=== PATIENT | male | born 1985 | race Two or more races ===

== ENCOUNTER 2019-11-19 15:36 | Emergency (ER) | payer SELFPAY ==
[~2019-11-19] VITALS: Ht 165.1 cm; Wt 81.6 kg
[2019-11-19 16:00] VITALS: BP 155/96
[2019-11-19] MEDS ORDERED: TETRACAINE 0.5% OPHTH SOLUTION 4ML BOTTLE. OD ONE (16:15)
[2019-11-19] MEDS ORDERED: FLUORESCEIN OPHTH TEST STRIP. OD ONE (16:15)
[2019-11-19] MEDS ORDERED: ERYTHROMYCIN 0.5% OPHTH OINTMENT 1GM TUBE. OD ONE (16:45)
[2019-11-19] MEDS ORDERED: ERYT1OIN6 OD (16:55)
--- NOTE | 2019-11-19 16:56 | PHYS DOC ---
General Adult EDM: Chief Complaint: FOREIGN BODY/EYES HPI: HPI: Patient is a 34 year old male who presents to the emergency department with complaints of a foreign body sensation in his right eye. Patient states yesterday he was sharpening some metal when he felt something go into his eye. He denies any vision changes, pain, crusting, or tearing from the affected eye. He currently denies any pain. Patient reports that his last tetanus shot was 8 years ago (LENNY DELGADO APRN) Review of Systems: Review of Systems: Constitutional: Denies fever or chills. [] Eyes: Denies change in visual acuity; see HPI. [] Integument: Denies rash. [] Neurologic: Denies headache Complete ROS is negative unless otherwise stated in the HPI. (LENNY DELGADO APRN) Heart Score: Risk Factors: Risk Factors: DM, Current or recent (<one month) smoker, HTN, HLP, family history of CAD, obesity. Risk Scores: Score 0 - 3: 2.5% MACE over next 6 weeks - Discharge Home Score 4 - 6: 20.3% MACE over next 6 weeks - Admit for Clinical Observation Score 7 - 10: 72.7% MACE over next 6 weeks - Early Invasive Strategies (LENNY DELGADO APRN) Current Medications: Current Medications Medications (Trade) Dose Ordered Sig/Reagan Start Time Stop Time Status Last Admin Dose Admin Erythromycin (Romycin) 0.5 inch 1X ONCE 11/19/19 16:45 11/19/19 16:46 Fluorescein Sodium (Ful-Ellen) 1 strip 1X ONCE 11/19/19 16:15 11/19/19 16:16 DC 11/19/19 16:14 1 STRIP Tetracaine HCl (Tetracaine) 1 drop 1X ONCE 11/19/19 16:15 11/19/19 16:16 DC 11/19/19 16:14 1 DROP (LENNY DELGADO APRN) Allergies: Allergies: Allergies Coded Allergies Type Severity Reaction Last Updated Verified No Known Drug Allergies 11/19/19 No (LENNY DELGADO APRN) Physical Exam: PE: Constitutional: Well developed, well nourished, no acute distress, non-toxic appearance. [] HENT: Normocephalic, atraumatic, bilateral external ears normal, nose normal. [] Eyes: PERRLA, EOMI, left eye no discharge, left eye conjunctive normal; right eye conjunctive a injected with watery discharge, visible foreign body noted to the lateral iris at 3 o'clock position with small rust ring surrounding the foreign body. Neck: Normal range of motion, no stridor. [] Cardiovascular:Heart rate regular rhythm Lungs & Thorax: Respirations even and unlabored, no retractions, no respiratory distress Skin: Warm, dry, no erythema, no rash. [] Extremities: No cyanosis, ROM intact, no edema. [] Neurologic: Alert and oriented X 3, no focal deficits noted. [] Psychologic: Affect normal, judgement normal, mood normal. [] (LENNY DELGADO APRN) EKG: EKG: [] (LENNY DELGADO APRN) Radiology/Procedures: Radiology/Procedures: Using tetracaine and fluroscein the patient's eye was examined under Wood's lamp and an area of uptake with a visible foreign body was noted at 3:00 over the lateral iris. Using the [employer] foreign body spud, 2 small valadez colored metallic foreign bodies were removed by myself. Patient's ocular symptoms have stabilized while they have been evaluated in the department and are appropriate for outpatient work up. No evidence of ruptured globe, retinal detachment, acute angle closure glaucoma, or deep space infection. Plan for 24 hour ophthalmologic follow up. [] (LENNY DELGADO APRN) Course & Med Decision Making: Course & Med Decision Making Pertinent Labs and Imaging studies reviewed. (See chart for details) [] (LENNY DELGADO APRN) Course & Med Decision Making I have reviewed the PA/SUPERINTENDENT CUSTODIAN JANITOR's note and Plan of Care. I was available for consul tation as needed during the patient's visit in the emergency department. I agree with the clinical impression, plans and disposition. (SAMEER GUZMAN MD) Niles Disclaimer: Niles Disclaimer: This electronic medical record was generated, in whole or in part, using a voice recognition dictation system. (LENNY DELGADO APRN) Departure Departure Impression: Primary Impression: Foreign body in eyeball, right Qualified Codes: S05.51XA - Penetrating wound with foreign body of right ey eball, initial encounter Additional Impression: Need for Tdap vaccination Disposition: HOME, SELF-CARE Condition: STABLE Referrals: NO PCP (PCP) Brayden OSMAN MD Patient Instructions: Eye - Foreign Body, [id number], VIS, Tetanus, Diphtheria (Td); Tetanus, Diphtheria, Pertussis (Tdap) - [facility] Additional Instructions: Fill the prescriptions and use them as directed. Follow-up with Dr. Osman or your eye doctor tomorrow for repeat exam. Return to the ER if symptoms worsen. Scripts Erythromycin Base (Erythromycin) 1 Gm Oint...g. 0.5 INCH OD QID for 5 Days, #1 TUBE 0 Refills Prov: LENNY DELGADO APRN 11/19/19 Justicifation of Admission Dx: Justifications for Admission: Justification of Admission Dx: N/A (LENNY DELGADO APRN) LENNY DELGADO APRN Nov 19, 2019 16:56 SAMEER GUZMAN MD Nov 19, 2019 16:58
[2019-11-19] MEDS ORDERED: DIPH,PERTUSS(ACELL),TET VAC/PF 0.5 ML SYRINGE. VAX IM ONE (17:15)
== END 2019-11-19 17:25 | disposition home or self-care (01) ==
LOC: ER 15:36
DX: T15.81XA Foreign body in other and multiple parts of external eye, right eye, initial encounter (principal); X58.XXXA Exposure to other specified factors, initial encounter; Y93.89 Activity, other specified; Y92.89 Other specified places as the place of occurrence of the external cause; Y99.8 Other external cause status
CPT/HCPCS: 65205; 65222; 90471; 90715; 99284